=== PATIENT | female | born 1970 | race Caucasian/White ===

== ENCOUNTER 2022-01-18 13:12 | Emergency (ER) | payer SELFPAY ==
[2022-01-18 13:25] VITALS: BP 133/75; PULSE 70; RESP 12; TEMP 36.9; O2SAT 99
--- NOTE | 2022-01-18 13:43 | ED.URI ---
HPI - URI/Sore Throat General Chief Complaint: Upper Respiratory Infection Stated Complaint: sinus pressure, cough, fever, drainage Time Seen by Provider: 01/18/22 13:43 Source: patient and RN notes reviewed Mode of arrival: ambulatory Limitations: no limitations History of Present Illness HPI Narrative: 52 y/o female presents for c/o of sinus pressure, post nasal drainage, and left ear and jaw pain onset today. Patient reports cold-like s/s that started 10 days ago, including a cough with purulent sputum, hoarse voice, low grade temps, chest burning, and congestion. States she felt better for about 2 days, then started with the symptoms today. Patient has attempted OTC medication with minimal relief. 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 Denies wheezing, SOB, CP, or palpitations. MD elicited complaint: cough Related Data Home Medications Medication Instructions Recorded Confirmed duloxetine 60 mg capsule,delayed mg PO 01/18/22 release Allergies Allergy/AdvReac Type Severity Reaction Status Date / Time No Known Allergies Allergy Verified 01/18/22 13:22 Review of Systems Review of Systems: CONSTITUTIONAL: Endorses low grade temps at home. EYES: Denies visual changes, redness, or discharge ENT: Reports sinus congestion and drainage, sinus pain, left-sided otalgia CARDIOVASCULAR: Denies chest pain, palpitations, edema RESPIRATORY: Reports recent productive cough with purulent sputum. Denies dyspnea, or wheezing. GASTROINTESTINAL: Denies abdominal pain, nausea, vomiting, diarrhea Exam Narrative: GENERAL: well-appearing, no acute distress. HEAD: Normocephalic EYES: PERRLA, conjunctivae clear ENT: Mucous membranes moist. TM pearly girard with dull light reflex bilaterally; no tragal tenderness. Bilateral maxillary tenderness noted L greater than R Oropharynx pink and moist without lesions or exudate, no drooling, no hoarseness, no trismus, uvula midline. NECK: Supple. No lymphadenopathy CHEST: Clear to auscultation, breath sounds equal. No wheezing, rhonchi, rales, or stridor. No respiratory distress, speaks in full sentences. HEART: Regular rate and rhythm. No murmur heard. SKIN: Warm, dry, no rash. Course Course Emergency Course: Patient is aware of diagnosis, understands and agrees to treatment plan. Anticipatory guidance given. Patient agrees to follow-up as directed and is aware of reasons to seek care at the emergency department. Portions of this record may have been created with voice recognition software Level of Care: Express Care Visit Vital Signs Vital signs: Vital Signs Temperature 98.5 F 01/18/22 13:25 Pulse Rate 70 01/18/22 13:25 Respiratory Rate 12 01/18/22 13:25 Blood Pressure 133/75 01/18/22 13:25 Pulse Oximetry 99 01/18/22 13:25 Oxygen Delivery Room Air 01/18/22 13:25 Temperature 98.5 F 01/18/22 13:25 Pulse Rate 70 01/18/22 13:25 Respiratory Rate 12 01/18/22 13:25 Blood Pressure 133/75 01/18/22 13:25 Pulse Oximetry 99 01/18/22 13:25 Oxygen Delivery Room Air 01/18/22 13:25 reviewed MDM - URI/Sore Throat MDM Narrative Medical decision making narrative: Symptoms have persisted for 10 days with initial improvement before worsening s/s c/w sinusitis. Rx abx. Patient is in stable condition and appropriate for outpatient management and treatment. Discussed s/s to report to ED. Differential Diagnosis Differential diagnosis: Likely upper respiratory infection, sinusitis and viral infection Discharge Plan Discharge Clinical Impression: Upper respiratory infection Patient Disposition: Home, Self-Care Condition: Stable Instructions: Antibiotic Form, Sinusitis (ED) Additional Instructions: Take antibiotic as directed Recommend Flonase spray and Zyrtec (or Claritin/Ciera) Tylenol 1000mg every 8 hours as needed for pain Symptomatic treatment includes: rest, fluids, and increase humidity of the air at home.
== END 2022-01-18 13:58 | disposition home or self-care (01) ==
PROVIDERS: Emergency Provider Nurse Practitioner Family
DX: J06.9 Acute upper respiratory infection, unspecified (principal)
CPT/HCPCS: 99213; G0463